=== PATIENT | male | born 1990 | race Caucasian/White ===

== ENCOUNTER 2017-04-08 00:26 | Emergency (ER) | payer SELFPAY ==
[~2017-04-08] VITALS: Ht 172.7 cm; Wt 89.0 kg
[2017-04-08 00:33] VITALS: Ht 172.7 cm; Wt 89.0 kg
[2017-04-08] MEDS ORDERED: traMADol 50 MG TAB PO ONE (01:00)
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
== END 2017-04-08 03:19 | disposition home or self-care (01) ==
LOC: FTE 00:26
DX: G44.309 Post-traumatic headache, unspecified, not intractable (principal); F07.81 Postconcussional syndrome; S20.219D Contusion of unspecified front wall of thorax, subsequent encounter; F17.210 Nicotine dependence, cigarettes, uncomplicated; R07.9 Chest pain, unspecified; V89.2XXD Person injured in unspecified motor-vehicle accident, traffic, subsequent encounter
CPT/HCPCS: 70450; 71010; 93005